=== PATIENT | female | born 1990 | race African-American/Black ===

== ENCOUNTER 2017-12-08 08:52 | Emergency (ER) | payer MEDICAID, OTHER ==
[~2017-12-08] VITALS: Ht 174 cm; Wt 80.0 kg
[~2017-12-08 08:52] MED LIST: PREN1CAP7 PO
[2017-12-08 09:00] VITALS: BP 137/67; PULSE 70; RESP 17; TEMP 98.3; O2SAT 100
[2017-12-08] MEDS ORDERED: PROPARACAINE HCL 0.5% OPHT SOLN 15 ML BTL RIGHT EYE ONE (09:15)
[2017-12-08] MEDS ORDERED: FLUORESCEIN SOD 1 MG STRIP RIGHT EYE ONE (09:15)
--- NOTE | 2017-12-08 09:41 | PD ---
HPI Chief Complaint: Eye Problems/Injury Time Seen by Provider: 09:39 Travel History International Travel<30 days: No Contact w/Intl Traveler<30days: No Traveled to known affect area: No History of Present Illness HPI 27-year-old female patient presents to the ER today because she states that her baby stuck her finger into her left eye last night and she woke up this morning with lots of burning in the left eye and swelling of the eyelid. She denies any other issues or injury. She states it was just her finger and not an object. Modifying Factors: None Associated Signs & Symptoms: Got scratched by her baby in the left eye, burning Risk Factors: None PFSH Past Medical History Hypertension: Yes ?: Unknown LMP: 10/2017 Past Surgical History Surgical History: No Previous Surgery Social History Alcohol Use: No Tobacco Use: No Substance Use: No (HX THC) Allergies-Medications (Allergen,Severity, Reaction): Coded Allergies: penicillin G (Unverified Allergy, Unknown, 03/20/17) Reported Meds & Prescriptions Reported Meds & Active Scripts Active Polymyxin B-Trimethoprim Opth Drops 10,000-0.1 Unit/Ml-% Soln 1 Drop LEFT EYE Q6HR Citranatal Paxton ( W/O Vit A W/ Fe Fumar) 27-1-260 Mg Cap 1 Cap PO DAILY Review of Systems Except as stated in HPI: all other systems reviewed are Neg Physical Exam Narrative GENERAL: Well-developed young -[place] Citizen female patient currently in mild distress. Awake and oriented 3. SKIN: Focused skin assessment warm/dry. HEAD: Atraumatic. Normocephalic. EYES: Pupils equal and round and responsive to light bilaterally. No scleral icterus. Significant left conjunctival injection, tearing, some eyelid edema. Fluorescein exam was done which shows corneal abrasion. No Christopher sign. Notable ecchymosis. No signs of blood or cloudiness in the anterior chamber. ENT: No nasal bleeding or discharge. Mucous membranes pink and moist. NECK: Trachea midline. No JVD. CARDIOVASCULAR: Regular rate and rhythm. No murmur appreciated. RESPIRATORY: No accessory muscle use. Clear to auscultation. Breath sounds equal bilaterally. GASTROINTESTINAL: Abdomen soft, non-tender, nondistended. Hepatic and splenic margins not palpable. MUSCULOSKELETAL: No obvious deformities. No clubbing. No cyanosis. No edema. NEUROLOGICAL: Awake and alert. No obvious cranial nerve deficits. Motor grossly within normal limits. Normal speech. PSYCHIATRIC: Appropriate mood and affect; insight and judgment normal. Data Data Last Documented VS Vital Signs Date Time Temp Pulse Resp B/P (MAP) Pulse Ox O2 Delivery O2 Flow Rate FiO2 12/08/17 09:00 98.3 70 17 137/67 (90) 100 Room Air Orders Orders Proparacaine 0.5% Opth Soln (Alcaine 0.5 (12/08/17 09:15) Fluorescein Strip (Rivri-Z-Pqxrep A.T.) (12/08/17 09:15) MDM Medical Decision Making Medical Screen Exam Complete: Yes Emergency Medical Condition: Yes Medical Record Reviewed: Yes Differential Diagnosis Corneal abrasion versus conjunctivitis versus globe rupture Narrative Course Exam reveals corneal abrasion. At this point, I am not suspecting globe rupture especially with mechanism and no Christopher sign. Plan would be to give her antibiotic eye ointment and follow-up with ophthalmology in a few days. Patient is from [place] and states that she was returning to [place] tomorrow , has an medical operations supervisor that she has followed up with for the right eye already. She states she has had corneal abrasion in the right eye in the past. The plan was discussed with her and she states understanding. Diagnosis Primary Impression: Corneal abrasion Med/Other Pt SpecificInfo: Prescription(s) given Scripts Polymyxin B-Trimethoprim Opth Drops (Polymyxin B-Trimethoprim Opth Drops) 10,000 -0.1 Unit/Ml-% Soln 1 DROP LEFT EYE Q6HR for Mgmt Bacterial Infection, #1 BOTTLE 0 Refills Prov: Bowen Watts MD 12/08/17 Disposition: 01 DISCHARGE HOME Condition: Stable Bowen Watts MD December 08, 2017 09:41
[2017-12-08] MEDS ORDERED: TRIMSOL LEFT EYE (09:52)
== END 2017-12-08 09:50 | disposition home or self-care (01) ==
LOC: NEPE 08:52
DX: S05.02XA Injury of conjunctiva and corneal abrasion without foreign body, left eye, initial encounter (principal); W50.0XXA Accidental hit or strike by another person, initial encounter
CPT/HCPCS: 99283